=== PATIENT | male | born 1990 | race Caucasian/White ===

== ENCOUNTER 2017-02-10 21:53 | Emergency (ER) | payer SELFPAY ==
[~2017-02-10] VITALS: Ht 167.6 cm; Wt 73.6 kg
[2017-02-10 22:00] VITALS: BP 134/72
== END 2017-02-11 01:00 | disposition left against medical advice (07) ==
LOC: ER 21:53
DX: Z53.21 Procedure and treatment not carried out due to patient leaving prior to being seen by health care provider (principal)

== ENCOUNTER 2017-02-11 10:32 | Emergency (ER) | payer BC ==
[~2017-02-11] VITALS: Ht 167.6 cm; Wt 75.0 kg
[2017-02-11] MEDS ORDERED: ACETAMINOPHEN WITH CODEINE 300/30MG TABLET PO ONE (13:00)
[2017-02-11] MEDS ORDERED: LIDOCAINE HCL 1% 20ML VIAL (Pyxis) INJ INFIL ONE (13:00)
[2017-02-11] MEDS ORDERED: BACITRACIN ZINC OINT UDPKT TOP ONE (15:30)
[2017-02-11] MEDS ORDERED: TETANUS, DIPHTHERIA, PERTUSSIS VAC/PF 0.5ML (>7YR OLD) IM ONE (15:45)
[2017-02-11 16:26] VITALS: BP 125/60
== END 2017-02-11 16:29 | disposition home or self-care (01) ==
LOC: ER 12:32
DX: S51.821A Laceration with foreign body of right forearm, initial encounter (principal); Y08.89XA Assault by other specified means, initial encounter; Y93.89 Activity, other specified; Y92.89 Other specified places as the place of occurrence of the external cause; Y99.2 Volunteer activity; F12.90 Cannabis use, unspecified, uncomplicated
CPT/HCPCS: 20520; 73090; 90471; 90715; 99284; J3490; X7700; Z7610